=== PATIENT | male | born 1980 | race Caucasian/White ===

== ENCOUNTER 2018-01-24 19:47 | Emergency (ER) | payer SELFPAY ==
[2018-01-24] MEDS: HYDROCODONE/APAP (5/325) TAB PO (20:38)
== END 2018-01-24 22:26 | disposition home or self-care (01) ==
LOC: FTE 19:47
DX: S93.402A Sprain of unspecified ligament of left ankle, initial encounter (principal); W10.8XXA Fall (on) (from) other stairs and steps, initial encounter; Y92.89 Other specified places as the place of occurrence of the external cause
CPT/HCPCS: 29515; 73590; 73610; 99283-25

== ENCOUNTER 2019-07-30 05:34 | Emergency (ER) | payer MEDICAID ==
[2019-07-30] MEDS: KETOROLAC 30 MG INJ IV (06:22)
[2019-07-30] MEDS: FAMOTIDINE 20 MG INJ IV (06:22)
== END 2019-07-30 08:14 | disposition home or self-care (01) ==
LOC: FTE 08:14
DX: R10.11 Right upper quadrant pain (principal)
CPT/HCPCS: 36415; 76705; 80053; 81001; 83690; 85025; 96374; 96375; 99285-25